=== PATIENT | female | born 1985 | race Caucasian/White ===

== ENCOUNTER → 2016-10-02 | Outpatient (CLI) | payer BC ==
[~2016-10-02] MED LIST: CLR10 PO; DOCU-94 PO; FLV400; FRRS300 PO; LYSI500C2; MTR600X PO; OXYC5TAB PO; PRENTAB26 PO
== END | disposition home or self-care (01) ==
LOC: C.PAPS 13:32
PROVIDERS: ATTEND Obstetrics & Gynecology
DX: Z01.419 Encounter for gynecological examination (general) (routine) without abnormal findings (principal)

== ENCOUNTER → 2017-06-25 | Outpatient (CLI) | payer BC ==
[~2017-06-25] MED LIST changes: -FLV400; +FLV400 PO
[2017-06-25 13:02] LABS: HEMATOCRIT 37.7 % (37-47); MEAN CELL VOLUME 84.9 fL (80-100); MEAN CORPUSCULAR HEMOGLOBIN 28.2 pg (25-34); MEAN CORPUSCULAR HGB CONC 33.2 g/dl (32-36); MEAN PLATELET VOLUME 10.6 fL (7.4-10.4); PLATELET COUNT 264 K/uL (130-400); RED BLOOD COUNT 4.44 M/uL (4.2-5.4); WHITE BLOOD COUNT 9.74 K/uL (4.8-10.8)
== END | disposition home or self-care (01) ==
LOC: C.LAB1850 10:05
PROVIDERS: ATTEND Obstetrics & Gynecology
DX: O03.9 Complete or unspecified spontaneous abortion without complication (principal)

== ENCOUNTER → 2017-06-29 | Day surgery (SDC) | payer BC ==
[2017-06-27 12:16] VITALS: BMI 23.0
[~2017-06-29] VITALS: Ht 165.1 cm; Wt 64.1 kg
[~2017-06-29] MED LIST changes: +ATROPINE SULFATE 0.1 MG/ML 5ML SYR IV PRN; +DEXAMETHASONE SOD INJ 4 MG/ML VIAL ONE; -DOCU-94 PO; +DOXYCYCLINE HYCLATE 100 MG CAP PO SCH; +DOXYCYCLINE HYCLATE 100 MG CAP PO STA; +EpHEDrine SULFATE INJ 50 MG/ML AMP IV PRN; +FENTANYL CITRATE INJ 50 MCG/1 ML 2 ML VIAL IV PRN; +FENTANYL CITRATE INJ 50 MCG/1 ML 2 ML VIAL ONE; -FRRS300 PO; +HYDROmorphone INJ 1 MG/ML SYR IV PRN; +IBUPROFEN 600 MG TAB PO PRN; +KETOROLAC TROMETHAMINE 30 MG/ML VIAL IV. PRN; +LABETALOL HCL IV 5 MG/ML 20ML IV PRN; +LACTATED RINGER'S 1000ML 1,000 ML IV SCH; +LIDOCAINE HCL 2% 2 ML VIAL (20MG/ML) ONE; +MEPERIDINE HCL 25 MG/ML CARP IV PRN; +METHYLERGONOVINE MALEATE 0.2 MG TAB PO SCH; +METHYLERGONOVINE MALEATE 0.2 MG/ML AMP ONE; +MIDAZOLAM HCL 1 MG/ML 2ML VIAL ONE; -MTR600X PO; +NURSING VERBAL MED ORDER ONE; +ONDANSETRON INJ 2 MG/ML 2 ML VIAL IV PRN; +ONDANSETRON INJ 2 MG/ML 2 ML VIAL IV STA; +ONDANSETRON INJ 2 MG/ML 2 ML VIAL ONE; -OXYC5TAB PO; +OXYCODONE/ACETAMINOPHEN 5-325 TAB PO PRN; +OXYTOCIN INJ 10 UNITS/ML VIAL ONE; +PROPOFOL IV EMULSION 10 MG/ML 20 ML VIAL IV ONE; +SODIUM CHLORIDE 0.9% 1000ML 1,000 ML IV SCH
[2017-06-29 05:57] VITALS: BP 112/64; PULSE 60; TEMP 37.3; O2SAT 99; Ht 165.1 cm; Wt 64.1 kg
--- NOTE | 2017-06-29 07:15 | History & Physical Bridge Note ---
H&P Re-Evaluation Bridge Note: I have examined the patient, reviewed the History & Physical and in the interval since the performance of the History & Physical I have noted the following changes of clinical significance: No changes noted Discussed genetic testing on molar tissue to help secure dx and they agree and aware of possible out of pocket costs.
--- NOTE | 2017-06-29 08:37 | Discharge Instructions ---
Discharge Instructions Date of Service Jun 29, 2017. Admission Reason for Admission: Molar Discharge Discharge Diagnosis / Problem: after surgery Discharge Goals Goal(s): Routine recovery after surgery Activity Recommendations Activity Limitations: as noted below . Instructions / Follow-Up Instructions / Follow-Up ACTIVITY RECOMMENDATIONS: * Avoid tampons, douching, hot tubs, pools, and intercourse until bleeding has stopped. * May shower as usual. * No strenuous activity for 24-48 hours. After 24-48 hours, you may do anything you feel like doing (driving and sports are okay). SPECIAL CARE INSTRUCTIONS: Special Diet: * Mild nausea may occur in the immediate post-operative period. * Take clear liquids such as tea, cola or bouillon until all nausea has subsided; you may then resume your normal diet. Special Care: * Light bleeding and vaginal spotting can last from a few days to 3-4 weeks. Call your doctor if bleeding becomes heavier than the heaviest part of your period. * Check your temperature twice a day for one week. If it goes above 100.4 degrees Fahrenheit (38.0 Celsius), notify your doctor. * Call your doctor's office for an appointment for 2-4 weeks after your surgery. FOLLOW-UP VISIT: Call your doctor's office for an appointment for 2-4 weeks after your surgery. You will be given 3 tablet of methergine to take home. Take first dose by mouth at about 2pm and then remaining every 6hrs until done. The antibiotic prescription has been sent to [facility] pharmacy and is to be taken twice a day until done (5days). The medicine is called flagyl and you take the medications orally. Current Hospital Diet Patient's current hospital diet: Discharge Diet Recommended Diet: Regular Diet Procedures Procedures Performed: Ultrasound Guided Dilation and Evacuation and Curettage Pending Studies Studies pending at discharge: yes List of pending studies: pathology, chromosome evaluation Medical Emergencies . Who to Call and When: Medical Emergencies: If at any time you feel your situation is an emergency, please call 911 immediately. . Non-Emergent Contact Non-Emergency issues call your: Patient Services Manager . . "Provider Documentation" section prepared by Estefani Lance. . VTE Core Measure Inpt VTE Proph given/why not?: SCD's
--- NOTE | 2017-06-29 08:43 | [facility] Operative Report ---
Operative Report Operative Date Jun 29, 2017. Pre-Operative Diagnosis Molar , congenital uterine anomaly Post-Operative Diagnosis Molar , congenital uterine anomaly Procedure(s) Performed Ultrasound Guided Dilation and Evacuation and Curettage Surgeon Dr.Shreya Natalio MD Entrepreneur Surgeon(s) Dr. Wen Fang DO Estimated Blood Loss 20ml Findings Ultrasound present and uterus was notably with 2 horns. End of the procedure no evidence of retained tissue by ultrasound noted. Fluids 1000 Specimens A. Molar prenancy (chromosomal testing sent) B. Other horn gestation sac Drains none Anesthesia Gen. Complication(s) None Disposition Recovery Room / PACU Indications 31-year-old 2 para 1001 who presented to the office with 6 weeks gestational age by her last menstrual period with heavy bleeding. She was Rh- and therefore had some laboratory testing including an hCG. She received rhogam. Her hCG was 79,000 and therefore concern was raised for possible molar . When an ultrasound that did show likely molar in a left uterine horn however there was also a gestational sac with debris and no fetus or heart tones on the right uterine horn. She was known to have a uterine septum. She had a previous and had had evaluation of such at that time. Given the complicated nature of her uterine anatomy and the findings concerning for molar , it was recommended she proceed with surgical treatment with dilatation and evacuation and curettage under ultrasound guidance. Description of Procedure Patient was taken to the operating room and identified. After adequate general anesthesia was obtained she was placed in the dorsolithotomy position and prepped and draped in the usual sterile fashion. Ultrasound was present and began transabdominal ultrasound of the uterus. The bladder was already somewhat emptied and therefore the bladder was not further drained to allow for better visualization by ultrasound. An Allis clamp was placed on the anterior lip of the cervix and the cervix was sequentially dilated using Hegar dilators to 25. An 8 mm suction curette was gently placed through cervical os into the uterine cavity on the side of the warned that contain the molar tissue. This tissue was evacuated in multiple passes and a sharp curettage was performed to ensure complete removal. At this point the collection canister was changed. It was more difficult to get to the gestational sac containing cavity however with ultrasound guidance the suction curette as well as the sharp curet was used to clear the contents of this cavity into a separate container. Tissue was obtained for chromosome analysis from the canister that contained the molar . The patient had been given dilute IV Pitocin before the procedure was begun and at the end of the procedure was given 0.2 mg of IM Methergine. Bleeding was scant. Findings at the end of the procedure by ultrasound included complete evacuation of tissue. At this point the procedure was terminated. The patient was returned to the supine position she is from anesthesia and transported to recovery room in stable condition. All sponge lap and needle counts were correct 2. I attest to the content of the Intraoperative Record and any orders documented therein. Any exceptions are noted below.
--- NOTE | 2017-06-29 09:17 | Anesthesiology Progress Note ---
Anesthesia Post Op Note Date & Time Jun 29, 2017 at 09:17 Vital Signs Pain Intensity: 0 Vital Signs Past 12 Hours Date Time Temp Pulse Resp B/P (MAP) Pulse Ox O2 Delivery O2 Flow Rate FiO2 06/29/17 09:10 37 71 16 111/67 100 Room Air 06/29/17 09:00 71 16 107/62 100 Oxymask 10 06/29/17 08:50 62 16 107/65 100 Oxymask 10 06/29/17 08:40 36.7 79 16 113/73 100 Oxymask 10 06/29/17 05:57 37.3 60 16 112/64 (80) 99 Room Air Notes Mental Status: alert / awake / arousable, participated in evaluation Pt Amnestic to Procedure: Yes Nausea / Vomiting: adequately controlled Pain: adequately controlled Airway Patency, RR, SpO2: stable & adequate BP & HR: stable & adequate Hydration State: stable & adequate Anesthetic Complications: no major complications apparent
[2017-06-29 09:30] VITALS: BP 103/68; PULSE 57; TEMP 36.4; O2SAT 100
[2017-06-29 10:00] VITALS: BP 110/66; PULSE 60; O2SAT 100
[2017-06-29 10:30] VITALS: BP 96/64; PULSE 55; TEMP 36.5; O2SAT 100
== END | disposition home or self-care (01) ==
LOC: C.ACU 05:30
PROVIDERS: ATTEND Obstetrics & Gynecology
DX: O02.0 Blighted ovum and nonhydatidiform mole (principal); E78.00 Pure hypercholesterolemia, unspecified; Z79.899 Other long term (current) drug therapy

== ENCOUNTER → 2017-07-06 | Outpatient (CLI) | payer BC ==
[~2017-07-06] MED LIST changes: -ATROPINE SULFATE 0.1 MG/ML 5ML SYR IV PRN; -DEXAMETHASONE SOD INJ 4 MG/ML VIAL ONE; -DOXYCYCLINE HYCLATE 100 MG CAP PO SCH; -DOXYCYCLINE HYCLATE 100 MG CAP PO STA; -EpHEDrine SULFATE INJ 50 MG/ML AMP IV PRN; -FENTANYL CITRATE INJ 50 MCG/1 ML 2 ML VIAL IV PRN; -FENTANYL CITRATE INJ 50 MCG/1 ML 2 ML VIAL ONE; -HYDROmorphone INJ 1 MG/ML SYR IV PRN; -IBUPROFEN 600 MG TAB PO PRN; -KETOROLAC TROMETHAMINE 30 MG/ML VIAL IV. PRN; -LABETALOL HCL IV 5 MG/ML 20ML IV PRN; -LACTATED RINGER'S 1000ML 1,000 ML IV SCH; -LIDOCAINE HCL 2% 2 ML VIAL (20MG/ML) ONE; -MEPERIDINE HCL 25 MG/ML CARP IV PRN; -METHYLERGONOVINE MALEATE 0.2 MG TAB PO SCH; -METHYLERGONOVINE MALEATE 0.2 MG/ML AMP ONE; -MIDAZOLAM HCL 1 MG/ML 2ML VIAL ONE; -NURSING VERBAL MED ORDER ONE; -ONDANSETRON INJ 2 MG/ML 2 ML VIAL IV PRN; -ONDANSETRON INJ 2 MG/ML 2 ML VIAL IV STA; -ONDANSETRON INJ 2 MG/ML 2 ML VIAL ONE; -OXYCODONE/ACETAMINOPHEN 5-325 TAB PO PRN; -OXYTOCIN INJ 10 UNITS/ML VIAL ONE; -PROPOFOL IV EMULSION 10 MG/ML 20 ML VIAL IV ONE; -SODIUM CHLORIDE 0.9% 1000ML 1,000 ML IV SCH
== END | disposition home or self-care (01) ==
LOC: C.LAB1850 08:49
PROVIDERS: ATTEND Obstetrics & Gynecology
DX: O02.0 Blighted ovum and nonhydatidiform mole (principal); Z3A.00 Weeks of gestation of pregnancy not specified

== ENCOUNTER → 2017-07-11 | Outpatient (CLI) | payer BC ==
[2017-07-11 12:31] LABS: URINE APPEARANCE CLEAR (CLEAR); URINE BILIRUBIN NEG (NEG); URINE COLOR YELLOW; URINE NITRITE NEG (NEG); URINE PH 6.5 (4.5-7.5); URINE SPECIFIC GRAVITY 1.015 (1.000-1.030); UROBILINOGEN NEG (NEG)
[2017-07-11 12:32] LABS: MANUAL MICROSCOPIC REQUIRED? NO; REVIEW REQ? NO
== END | disposition home or self-care (01) ==
LOC: C.LAB1850 10:02
PROVIDERS: ATTEND Obstetrics & Gynecology
DX: R30.0 Dysuria (principal)

== ENCOUNTER → 2017-07-13 | Outpatient (CLI) | payer BC | END | disposition home or self-care (01) | LOC: C.LAB1850 09:28 | PROVIDERS: ATTEND Obstetrics & Gynecology | DX: O02.0 Blighted ovum and nonhydatidiform mole (principal) ==

== ENCOUNTER → 2017-08-03 | Outpatient (CLI) | payer BC | END | disposition home or self-care (01) | LOC: C.LAB1850 12:27 | PROVIDERS: ATTEND Obstetrics & Gynecology | DX: O02.0 Blighted ovum and nonhydatidiform mole (principal) ==

== ENCOUNTER → 2017-11-20 | Outpatient (CLI) | payer OTHER | END | disposition home or self-care (01) | LOC: C.LAB1850 10:21 | PROVIDERS: ATTEND Obstetrics & Gynecology | DX: O20.9 Hemorrhage in early pregnancy, unspecified (principal) ==

== ENCOUNTER → 2017-11-21 | Outpatient (CLI) | payer OTHER | END | disposition home or self-care (01) | LOC: C.LABSPEC 11:17 | PROVIDERS: ATTEND Obstetrics & Gynecology | DX: Z34.81 Encounter for supervision of other normal pregnancy, first trimester (principal) ==

== ENCOUNTER → 2017-11-23 | Outpatient (CLI) | payer OTHER ==
[2017-11-23 10:06] LABS: BASO % 0.3 %; BASO ABS # 0.02 K/uL (0-0.2); EOS % 3.4 %; EOS ABS # 0.24 K/uL (0-0.5); HEMATOCRIT 36.3 % (37-47); HEMOGLOBIN 12.7 g/dL (12.0-16.0); IG# 0.03 K/uL (0.00-0.02); LYMPH % 28.9 %; LYMPH ABS # 2.06 K/uL (1.2-3.4); MEAN CELL VOLUME 84.2 fL (80-100); MEAN CORPUSCULAR HEMOGLOBIN 29.5 pg (25-34); MEAN PLATELET VOLUME 10.1 fL (7.4-10.4); MONO ABS # 0.64 K/uL (0.11-0.59); NEUT ABS # 4.14 K/uL (1.4-6.5); PLATELET COUNT 234 K/uL (130-400); RED CELL DISTRIBUTION WIDTH CV 13.3 % (11.5-14.5); RED CELL DISTRIBUTION WIDTH SD 40.5 fL (36.4-46.3); WHITE BLOOD COUNT 7.13 K/uL (4.8-10.8)
[2017-11-23 10:51] LABS: ALBUMIN 3.8 gm/dl (3.4-5.0); ALT/SGPT 19 U/L (12-78); BLOOD UREA NITROGEN 8 mg/dl (7-18); CALCIUM 9.3 mg/dl (8.5-10.1); CARBON DIOXIDE 25 mmol/L (21-32); CREATININE 0.56 mg/dl (0.60-1.20); GLUCOSE 59 mg/dl (70-99); POTASSIUM 3.5 mmol/L (3.5-5.1); SODIUM 136 mmol/L (136-145)
[2017-11-23 10:54] LABS: ALKALINE PHOSPHATASE 46 U/L (45-117); AST/SGOT 16 U/L (15-37); TOTAL PROTEIN 7.5 gm/dl (6.4-8.2)
== END | disposition home or self-care (01) ==
LOC: C.LAB1850 09:12
PROVIDERS: ATTEND Obstetrics & Gynecology
DX: Z34.81 Encounter for supervision of other normal pregnancy, first trimester (principal)

== ENCOUNTER → 2017-11-27 | Outpatient (CLI) | payer OTHER | END | disposition home or self-care (01) | LOC: C.LABSPEC 10:31 | PROVIDERS: ATTEND Obstetrics & Gynecology | DX: R30.0 Dysuria (principal) ==

== ENCOUNTER → 2018-01-11 | Outpatient (CLI) | payer OTHER ==
[~2018-01-11] MED LIST changes: +ASPI81TA28 PO; -LYSI500C2; +LYSI500C2 PO
== END | disposition home or self-care (01) ==
LOC: C.LAB1850 14:26
PROVIDERS: ATTEND Obstetrics & Gynecology
DX: Z29.13 Encounter for prophylactic Rho(D) immune globulin (principal)

== ENCOUNTER 2018-01-18 08:14 | Day surgery (SDC) | payer OTHER ==
[~2018-01-18] VITALS: Ht 165.1 cm; Wt 65.5 kg
[~2018-01-18 08:14] MED LIST changes: +DOXYCYCLINE HYCLATE 100 MG CAP PO SCH; +DOXYCYCLINE HYCLATE 100 MG in DEXTROSE 5% 100ML IV SCH; +LACTATED RINGER'S 1000ML 1,000 ML IV SCH; -PRENTAB26 PO
[2018-01-18 08:47] VITALS: BP 104/61; PULSE 68; TEMP 37; O2SAT 100; Ht 165.1 cm; Wt 65.5 kg
[2018-01-18] MEDS ORDERED: NURSING VERBAL MED ORDER ONE ×2 (09:30→14:30)
[2018-01-18] MEDS ORDERED: SODIUM CHLORIDE 0.9% 1000ML 1,000 ML IV SCH (09:39)
--- NOTE | 2018-01-18 09:39 | History & Physical Bridge Note ---
H&P Re-Evaluation Bridge Note: I have examined the patient, reviewed the History & Physical and in the interval since the performance of the History & Physical I have noted the following changes of clinical significance: No changes noted
--- NOTE | 2018-01-18 09:42 | Discharge Instructions ---
Discharge Instructions Date of Service Jan 18, 2018. Visit Reason for Visit: Demise Discharge Discharge Diagnosis / Problem: Missed Discharge Goals Goal(s): Specific goals Activity Recommendations Activity Limitations: per Instructions/Follow-up section Anesthesia . Post Anesthesia Instructions: If you have had General Anesthesia or IV Sedation: * Do not drive today. * Resume driving when surgeon permits. * Do not make important decisions or sign legal documents today. * Call surgeon for: 1. Temperature elevations greater than 101 degrees F. 2. Uncontrollable pain. 3. Excessive bleeding. 4. Persistent nausea and vomiting. 5. Medication intolerance (nausea, vomiting or rash). * For nausea and vomiting use only clear liquids such as: tea, soda, bouillon until nausea subsides, then gradually increase diet as tolerated. * If you have any concerns or questions, call your surgeon's office. If physician is unavailable and it is an emergency, call 911 or go to the nearest emergency room. . Instructions / Follow-Up Instructions / Follow-Up ACTIVITY RECOMMENDATIONS: * Avoid tampons, douching, hot tubs, pools, and intercourse until bleeding has stopped. * May shower as usual. * No strenuous activity for 24-48 hours. After 24-48 hours, you may do anything you feel like doing (driving and sports are okay). SPECIAL CARE INSTRUCTIONS: Special Diet: * Mild nausea may occur in the immediate post-operative period. * Take clear liquids such as tea, cola or bouillon until all nausea has subsided; you may then resume your normal diet. Special Care: * Light bleeding and vaginal spotting can last from a few days to 3-4 weeks. Call your doctor if bleeding becomes heavier than the heaviest part of your period. * Check your temperature twice a day for one week. If it goes above 100.4 degrees Fahrenheit (38.0 Celsius), notify your doctor. * Call your doctor's office for an appointment for 6 weeks after your surgery. FOLLOW-UP VISIT: Call your doctor's office for an appointment for 6 weeks after your surgery. Diet Recommendations Recommended Home Diet: resume previous diet Pending Studies Studies pending at discharge: no Medical Emergencies . Who to Call and When: Medical Emergencies: If at any time you feel your situation is an emergency, please call 911 immediately. . Non-Emergent Contact Non-Emergency issues call your: Primary Care Provider . . "Provider Documentation" section prepared by Tasneem Will. .
[2018-01-18] MEDS ORDERED: ONDANSETRON INJ 2 MG/ML 2 ML VIAL IV PRN ×2 (09:45→11:00)
[2018-01-18] MEDS ORDERED: OXYCODONE/ACETAMINOPHEN 5-325 TAB PO PRN ×2 (09:45)
[2018-01-18] MEDS ORDERED: PROMETHAZINE HCL INJ 25 MG in SODIUM CHLORIDE 0.9% 50ML 50 ML IV PRN (09:45)
[2018-01-18] MEDS ORDERED: IBUPROFEN 600 MG TAB PO PRN (09:45)
[2018-01-18] MEDS ORDERED: METHYLERGONOVINE MALEATE 0.2 MG/ML AMP ONE (10:19)
[2018-01-18] MEDS ORDERED: HYDROmorphone INJ 0.5 MG/0.5 ML SYR IV PRN (11:00)
[2018-01-18] MEDS ORDERED: FENTANYL CITRATE INJ 50 MCG/1 ML 2 ML VIAL IV PRN (11:00)
[2018-01-18] MEDS ORDERED: ATROPINE SULFATE 0.1 MG/ML 5ML SYR IV PRN (11:00)
[2018-01-18] MEDS ORDERED: DOXYCYCLINE IV ONE (11:00)
[2018-01-18] MEDS ORDERED: DEXTROSE 5% IV ONE (11:00)
[2018-01-18] MEDS ORDERED: LABETALOL HCL IV 5 MG/ML 20ML IV PRN (11:00)
[2018-01-18] MEDS ORDERED: MEPERIDINE HCL 25 MG/ML CARP IV PRN (11:00)
[2018-01-18] MEDS ORDERED: EpHEDrine SULFATE INJ 50 MG/ML AMP IV PRN (11:00)
[2018-01-18] MEDS ORDERED: SCOPOLAMINE 1.5 MG TDSY TD ONE (11:48)
[2018-01-18] MEDS ORDERED: PROPOFOL IV EMULSION 10 MG/ML 20 ML VIAL IV ONE (11:51)
[2018-01-18] MEDS ORDERED: DEXAMETHASONE SOD INJ 4 MG/ML VIAL ONE (11:51)
[2018-01-18] MEDS ORDERED: MIDAZOLAM HCL 1 MG/ML 2ML VIAL ONE (11:51)
[2018-01-18] MEDS ORDERED: LIDOCAINE HCL 2% 2 ML VIAL (20MG/ML) ONE (11:51)
[2018-01-18] MEDS ORDERED: ONDANSETRON INJ 2 MG/ML 2 ML VIAL ONE (11:51)
[2018-01-18] MEDS ORDERED: FENTANYL CITRATE INJ 50 MCG/1 ML 2 ML VIAL ONE (11:51)
[2018-01-18] MEDS ORDERED: CHECK SCOPOLAMINE PATCH PLACEMENT ONE (12:00)
--- NOTE | 2018-01-18 12:52 | [facility] Post Operative Brief Note ---
Immediate Operative Summary Operative Date Jan 18, 2018. Pre-Operative Diagnosis Second trimester demise in utero Post-Operative Diagnosis Same Procedure(s) Performed D&E Surgeon Dr. Eva Will Ballistics Tester Surgeon(s) MS1 Estimated Blood Loss 250cc Findings Consistent with Post-Op Diagnosis Specimens POC provided to patient to take home as requested. (Labeled with patient name and accompanied patient to PACU.) Drains None Anesthesia Type General Complication(s) none Disposition Accompanied Pt To Recover: no Disposition: Recovery Room / PACU
--- NOTE | 2018-01-18 13:24 | DIAGNOSTIC IMAGING REPORT ---
Pelvic ultrasound GUIDANCE INTRAOPERATIVE CLINICAL HISTORY: greater than 12 weeks. Failed . FINDINGS: Real-time sonographic imaging of the pelvis performed in the transabdominal technique for intraoperative guidance of a dilatation and evacuation. Initial images demonstrate partial visualization of the fetus within the uterine cavity. Subsequent images demonstrate evacuation of the fetus. There is persistent small focal collection within the uterine fundus. IMPRESSION: Pelvic ultrasound provided for intraoperative guidance of a dilatation and evacuation. Post procedure images demonstrate a small amount of hypoechoic material within the uterine fundus. This may represent expected post procedure hemorrhage. Consider follow up to ensure resolution. Electronically signed by: Rodriguez Chatman M.D. 01/18/2018 1:23 PM Dictated Date/Time: 01/18/2018 1:20 PM
[2018-01-18 13:47] VITALS: BP 105/71; PULSE 58; TEMP 36.8; O2SAT 100
--- NOTE | 2018-01-18 14:24 | Anesthesiology Progress Note ---
Anesthesia Post Op Note Date & Time Jan 18, 2018 at 14:24 Vital Signs Pain Intensity: 4.0 Vital Signs Past 12 Hours Date Time Temp Pulse Resp B/P (MAP) Pulse Ox O2 Delivery O2 Flow Rate FiO2 01/18/18 13:39 36.6 100 Room Air 01/18/18 13:37 62 22 01/18/18 13:37 63 22 99 01/18/18 13:36 122/88 01/18/18 13:33 58 19 100 01/18/18 13:33 55 19 01/18/18 13:31 111/76 01/18/18 13:28 53 18 01/18/18 13:28 57 18 99 01/18/18 13:27 52 12 01/18/18 13:27 51 12 99 01/18/18 13:26 118/83 01/18/18 13:22 57 17 01/18/18 13:22 54 17 99 01/18/18 13:21 115/81 01/18/18 13:18 62 17 99 01/18/18 13:18 65 17 01/18/18 13:16 115/84 01/18/18 13:13 57 13 01/18/18 13:13 55 13 100 01/18/18 13:12 60 18 124/68 99 01/18/18 13:12 60 18 01/18/18 13:07 71 20 01/18/18 13:07 72 20 97 01/18/18 13:06 105/77 01/18/18 13:03 111/76 01/18/18 13:02 93 26 100 01/18/18 13:02 93 26 01/18/18 13:02 36.2 84 20 111/76 100 Oxymask 10 01/18/18 08:47 37 68 18 104/61 (75) 100 Room Air Notes Mental Status: alert / awake / arousable, participated in evaluation Pt Amnestic to Procedure: Yes Nausea / Vomiting: adequately controlled Pain: adequately controlled Airway Patency, RR, SpO2: stable & adequate BP & HR: stable & adequate Hydration State: stable & adequate Anesthetic Complications: no major complications apparent
[2018-01-18 14:25] VITALS: BP 104/68; PULSE 60; TEMP 36.3; O2SAT 99
[2018-01-18] MEDS ORDERED: DOXYCYCLINE HYCLATE 100 MG CAP PO ONE (14:30)
--- NOTE | 2018-01-18 15:44 | OPERATIVE REPORT ---
DATE OF OPERATION: 01/18/2018 PREOPERATIVE DIAGNOSIS: Second trimester demise in utero. POSTOPERATIVE DIAGNOSIS: Same. PROCEDURE: D and E. SURGEON: Tasneem Will MD INSURANCE CUSTOMER SERVICE SPECIALIST: MS-1. ESTIMATED BLOOD LOSS: 250 mL. FINDINGS: Consistent with postop diagnosis. SPECIMEN: POCs which were provided to the patient to take home at her request. See signed consent. POCs were labeled with the patient name and they accompanied the patient to the PACU. DRAINS: None. ANESTHESIA: General. COMPLICATIONS: None. DISPOSITION: Stable to recovery room. DESCRIPTION OF PROCEDURE: Kateryna Van is a 32-year-old G3, P1-0-2-1 who presented with a tavarez intrauterine , 16 weeks by gestational age but with a demise measuring approximately 13 weeks. She was placed on the table in the dorsal lithotomy position with candy-cane stirrups, prepped and draped in standard sterile fashion and a hard time-out was taken prior to proceeding. The bladder was emptied of urine via straight catheterization. Lloyd and weighted specula were introduced to the vagina, staying to the left of the patient's vaginal septum, and the cervix was grasped on its anterior lip with a single-tooth tenaculum. Ultrasound guidance was in the OR prior to the case and throughout the case. They were able to use ultrasound guidance to visualize the contents of the uterus and confirm demise one final time before the cervix was serially dilated to a 49-Yemeni. The 14 mm suction catheter was then introduced and used to evacuate a brownish old-appearing amniotic fluid, although the majority of the parts were able to be evacuated using suction. The calvarium was too large for this approach. Therefore, the Bierer's forceps were introduced through the cervical canal into the endometrial cavity where they were used to surround and decompress the calvarium, which was then gently extracted in 1 piece. The suction curet was then reintroduced. The contents of the uterus were then evacuated using suction. As the uterus contracted down, the septate nature of the uterus became more evident and there was more definitely a right and left cavity. Each cavity was entered using ultrasound guidance and suction curettage was carried out on both sides. Ultimately, a sharp curette was then introduced in order to release one last approximately 3 inch long piece of placenta which was being a bit stubborn. The suction curette 8 mm was then introduced to make a few final passes to retrieve any blood clot and debris. Ultrasound guidance was able to show as that the lining was thin and that all placental and tissues had been removed. At that point, the patient's bleeding was slightly brisk, so she was given a dose of Methergine, while bimanual massage was performed, the bleeding quickly abated and the procedure was then considered completed. The patient was transferred to recovery and I anticipate discharge home today. Of note, the patient is Rh negative. She was given RhoGAM in our office 1 week prior at the time of her diagnosis of MAB. Additionally, the patient and her after much consideration have elected to bring their products of conception home in order to allow for grieving and burial at their preference. She has signed a consent expressing that she will accept responsibility for her tissues. The products of conception were then placed in a container with saline and this was placed in a bereavement box provided to her by the hospital which accompanied her to the PACU and we anticipate she will be taken at home with her today. She understands that this means there will be no studies done on the tissue meaning no gross pathology, no heterogenetic information will be obtained. I attest to the content of the Intraoperative Record and any orders documented therein. Any exceptions are noted below. [place]
== END 2018-01-18 14:24 | disposition home or self-care (01) ==
LOC: C.ACU 08:14
PROVIDERS: ATTEND Obstetrics & Gynecology
DX: O02.1 Missed abortion (principal); Q76.0 Spina bifida occulta; Z79.82 Long term (current) use of aspirin; Z91.030 Bee allergy status; Z82.49 Family history of ischemic heart disease and other diseases of the circulatory system; Z83.49 Family history of other endocrine, nutritional and metabolic diseases; E78.00 Pure hypercholesterolemia, unspecified; Z83.2 Family history of diseases of the blood and blood-forming organs and certain disorders involving the immune mechanism; Z80.0 Family history of malignant neoplasm of digestive organs

== ENCOUNTER 2019-07-02 05:29 | Inpatient (IN) ==
--- NOTE | 2019-06-27 11:11 | History and Physical Report ---
DATE OF ADMISSION: 05/06/2019 CHIEF COMPLAINT: Previous , term , unstable lie. HISTORY OF PRESENT ILLNESS: The patient is a 33-year-old 5, para 1. She has had 3 spontaneous ABs. She has history of spina bifida occulta. She has had several back surgeries, several surgeries on her legs, she has atrophy of the right leg. First she had a at 38 weeks 1 day after her blood pressure went up and she became toxemic. She had a 7 pound 5 ounce male and was a breech presentation. This has been well dated. She has been on baby aspirin daily until she was 36 weeks and then we stopped recently. was ultrasounded for growth and she was found to have mildly increased amniotic fluid. It was repeated a week later and was found to have a breech presentation. Also she came into the office several times and clinically the breech was confirmed. It should be noted she has a heart-shaped uterus. At this time a pelvic exam revealed the cervix to be unripe. Presenting part to be floating and she is being scheduled for repeat section. PAST MEDICAL HISTORY: She has a 4-year-old boy. ALLERGIES: ALLERGIC TO LATEX. PAST SURGICAL HISTORY: Previously mentioned spine surgery for spina bifida occulta, leg and foot surgery multiple operations atrophy of the right leg. She has had a D&E x2 and she had a resection of a uterine septum. SOCIAL HISTORY: No smoking. No excessive alcohol intake. [id number] mom. FAMILY HISTORY: Mom is 55, has problems with anxiety and depression, high blood pressure, elevated cholesterol. Father 66, has early onset Alzheimer's, ulcerative colitis, elevated blood pressure. He is a recovering alcoholic, smoker, 3 half brothers and sisters all in good health. REVIEW OF SYSTEMS: HEAD: No symptoms of frequent or severe headaches. EYES: No symptoms of blurred vision, double vision. EARS: No symptoms of frequent ear infection, difficulty hearing. NOSE: No symptoms of frequent nosebleeds, difficulty breathing through her nose. THROAT: No symptoms of frequent or severe sore throats, difficulty swallowing. RESPIRATORY SYSTEM: No history of asthma, chest pain, shortness of breath. PHYSICAL EXAMINATION: GENERAL: Well-developed, well-nourished 34-year-old white female, alert and oriented x3 and cooperative in no acute distress, appears stated age. EYES: Conjunctivae are pink. Sclerae white, no evidence of jaundice. EARS: Had normal light reflex bilaterally. NOSE: Had normal mucosa. Septum is midline. There were no polyps. THROAT: No erythema or evidence of infection. Teeth are in good state of repair. HEAD: Normocephalic, normal distribution of hair. NECK: Supple. Trachea midline. Thyroid is not enlarged. There is no adenopathy appreciated. Both carotids are of good intensity. CHEST: Clear to auscultation and percussion. No wheezes, rales or rhonchi appreciated. HEART: Had regular rhythm. S1, S2 are normal. BREASTS: Normal. ABDOMEN: Revealed term size fetus, heart wedge-shaped uterus could be diagnosed through the abdominal wall, well-healed Pfannenstiel incision. Head ballotable left upper quadrant. BACK: Midline incision for previous spine surgery several scars on her right leg and foot. PELVIC: Presenting part floating. Cervix posterior, closed, uneffaced and firm. MUSCULOSKELETAL: Revealed no calf tenderness. IMPRESSIONS OF THIS CASE: Spina bifida occulta, D&E x2, resection of a uterine septum. Previous , previous foot and leg surgery, breech presentation, unstable lie.
--- NOTE | 2019-06-30 14:17 | Anesthesiology Consultation ---
Date of Service June 30, 2019 Assessment & Plan (1) Encounter for pre-operative examination: - Hx spina bifida occulta: patient s/p c/s: 08/16/15: SAB x 1 at L3-L4 at [facility]; per patient, perioperative hypotension with c/s-- no major complications apparent per anesthesia records Chart Review Chart Review: Acceptable Risk for Surgery (pending preop labs) and Patient seen in Pre Admission Testing Teaching & Discussion Pre-Anesthesia Teaching/Discussion Notes: Instructed NPO after midnight before surgery,except medications with 15 cc of water. Medication instructions provided according to the PAT guidelines. History Surgery Operation Date: 07/02/19 07:30 Proposed Procedures p Section in LD - Nilay Cortez MD Height/Weight Height: 5 ft 4 in Weight: 81.647 kg Allergies Allergy/AdvReac Type Severity Reaction Status Date / Time latex Allergy Unknown REDNESS, Verified 06/27/19 11:57 SWELLING THROAT SOB Medications Home Medications Medication Instructions Recorded Confirmed Last Taken 1 tab PO QPM 06/27/19 06/27/19 Unknown docusate sodium [Stool Softener] 100 mg PO QPM 06/27/19 06/27/19 Unknown lysine 1 dose PO QPM 06/27/19 06/27/19 Unknown Past Medical History Medical History Anxiety Chronic back pain Depression Spina bifida occulta diagnosed at - able to ambulate without assistance Exercise / Class Metabolic Activity III < 4 Walking/Shop/Light housework Past Surgical History Surgical History H/O: History of D&C x 2 History of back surgery multiple - hardware present History of surgery right leg lengthening History of wisdom tooth extraction Hx of foot surgery right club foot Status post hysteroscopic resection of uterine septum Past Anesthesia History Other c/s: 08/16/15: SAB x 1 at L3-L4 at [facility]; per patient, perioperative hypotension with c/s-- no major complications apparent per anesthesia records History of PONV History of PONV Social History Smoking Status: Never smoker Do You Dip or Chew Tobacco: No Hx Alcohol Use: No Hx Substance Use: No substance use type: does not use Review of Systems URI symptoms- OB aware. Mild reflux with . Patient denies chest pain, shortness of breath, wheezing, palpitations. Physical Exam Vital Signs Last Vital Signs Temp 36.7 C 06/30/19 14:13 Pulse 74 06/30/19 14:13 Resp 20 06/30/19 14:13 BP 115/78 06/30/19 14:13 Pulse Ox 98 06/30/19 14:13 PHYSICAL Full neck and c-spine range of motion. Full TMJ range of motion. TMD 3.5 finger breaths Mallampati Score 2 Dentition: intact Lungs: clear throughout to auscultation Cardiac: regular rate and rhythm, no murmurs noted Spine: normal Extremities: no edema
[2019-06-30 15:06] LABS: Basophils # (auto) 0.03 K/uL (0-0.2); Basophils % (auto) 0.3 %; Eosinophils # (auto) 0.27 K/uL (0-0.5); Eosinophils % (auto) 2.5 %; Hematocrit (blood only) 37.2 % (37-47); Hemoglobin 12.5 g/dL (12.0-16.0); Immature Granulocytes % (auto) 0.9 %; Lymphocytes # (auto) 2.38 K/uL (1.2-3.4); Lymphocytes % (auto) 21.9 %; Mean Corpuscular Hgb Conc 33.6 g/dL (32-36); Mean Corpuscular Volume 86.3 fL (80-100); Mean Platelet Volume 12.8 fL (7.4-10.4); Monocytes # (auto) 0.78 K/uL (0.11-0.59); Monocytes % (auto) 7.2 %; Neutrophils # (auto) 7.29 K/uL (1.4-6.5); Neutrophils % (auto) 67.2 %; Platelet Count 149 K/uL (130-400); RDW Coefficient of Variation 13.9 % (11.5-14.5); Red Blood Count 4.31 M/uL (4.2-5.4); White Blood Count 10.85 K/uL (4.8-10.8)
[2019-06-30 15:10] LABS: INR 0.9 (0.9-1.1); Partial Thromboplastin Time 26.8 Seconds (21.0-31.0); Prothrombin Time 9.3 Seconds (9.0-12.0)
[2019-06-30 15:20] LABS: BUN Creatinine Ratio 13.7 (10-20); Calcium 8.8 mg/dl (8.5-10.1); Creatinine Clr Calc Pharmacy 132.2 ml/min; Est GFR (African American) 136.8; Est GFR (Non-African American) 118.1; Potassium 3.6 mmol/L (3.5-5.1)
[2019-07-02] MEDS ORDERED: cefOXitin 2,000 MG in DEXTROSE 5% 50 ML IV SCH (06:00)
[2019-07-02] MEDS ORDERED: LACTATED RINGER'S 1,000 ML IV SCH ×2 (06:00→09:30)
[2019-07-02] MEDS ORDERED: CITRIC ACID/SODIUM CITRATE 15 ML UDC PO SCH (06:00)
[2019-07-02 06:06] LABS: Basophils # (auto) 0.03 K/uL (0-0.2); Basophils % (auto) 0.3 %; Eosinophils # (auto) 0.23 K/uL (0-0.5); Eosinophils % (auto) 2.3 %; Hematocrit (blood only) 36.4 % (37-47); Hemoglobin 12.3 g/dL (12.0-16.0); Immature Granulocytes # (auto) 0.12 K/uL (0.00-0.02); Immature Granulocytes % (auto) 1.2 %; Lymphocytes # (auto) 2.77 K/uL (1.2-3.4); Lymphocytes % (auto) 27.3 %; Mean Corpuscular Hemoglobin 28.9 pg (25-34); Mean Corpuscular Volume 85.4 fL (80-100); Mean Platelet Volume 12.4 fL (7.4-10.4); Monocytes # (auto) 0.89 K/uL (0.11-0.59); Monocytes % (auto) 8.8 %; Neutrophils % (auto) 60.1 %; Platelet Count 152 K/uL (130-400); RDW Standard Deviation 43.1 fL (36.4-46.3); Red Blood Count 4.26 M/uL (4.2-5.4); White Blood Count 10.14 K/uL (4.8-10.8)
[2019-07-02 06:08] LABS: Mean Corpuscular Hgb Conc 33.8 g/dL (32-36)
[2019-07-02 06:13] LABS: BUN Creatinine Ratio 13.3 (10-20); Calcium 9.1 mg/dl (8.5-10.1); Creatinine Clr Calc Pharmacy 130.4 ml/min; Est GFR (African American) 136.8; Est GFR (Non-African American) 118.1; Potassium 3.6 mmol/L (3.5-5.1)
[2019-07-02 06:16] LABS: INR 0.9 (0.9-1.1); Partial Thromboplastin Time 26.1 Seconds (21.0-31.0); Prothrombin Time 9.3 Seconds (9.0-12.0)
--- NOTE | 2019-07-02 07:25 | History & Physical Bridge Note ---
Date of Service July 02, 2019 History & Physical Bridge Note I have examined the patient, reviewed the History & Physical and in the interval since the performance of the History & Physical I have noted the following changes of clinical significance: no changes noted
[2019-07-02] MEDS ORDERED: OXYTOCIN 10 UNITS/ML VIAL ONE ×2 (07:35→08:44)
[2019-07-02] MEDS ORDERED: fentaNYL citrate 100 MCG/2 ML VIAL ONE (07:37)
[2019-07-02] MEDS ORDERED: MoRPHine SULFATE PF 1 MG/ML 10 ML AMP/VIAL ONE (07:38)
--- NOTE | 2019-07-02 09:11 | Post Operative Brief Note ---
Immediate Post Op Note v1 Date of Surgery July 02, 2019 Pre & Post Diagnosis Operation Date: 07/02/19 07:30 Pre-Op Diagnosis: BREECH, PREVIOUS SECTION, TERM Post-Op Diagnosis: BREECH, PREVIOUS SECTION, TERM Procedure Operation Date: 07/02/19 07:30 Actual Procedures p Section in LD; LIVE MALE AT 0830 - Nilay Cortez MD Surgeon Nilay Cortez MD Software Development Project Manager azul Estimated Blood Loss 600 Findings Consistent with Post-Op Diagnosis Fluids 1200 ml Specimens placenta Drains Peterson Catheter Anesthesia Type Spinal Complications none Disposition Accompanied Patient To Recovery: No Disposition: Recovery Room
[2019-07-02] MEDS ORDERED: HYDROCORTISONE ACETATE 25 MG SUPP PR PRN (09:16)
[2019-07-02] MEDS ORDERED: MAGNESIUM HYDROXIDE SUSP 30 ML UDC PO PRN (09:16)
[2019-07-02] MEDS ORDERED: BENZOCAINE 20% AER SPR 82.5 GM CAN EXT PRN (09:16)
[2019-07-02] MEDS ORDERED: DIPHTHERIA/TETANUS/PERTUSSIS 0.5 ML SYR/VIAL IM ONE (09:16)
[2019-07-02] MEDS ORDERED: SENNA 8.6 MG TAB PO PRN (09:16)
[2019-07-02] MEDS ORDERED: SUPERCREAM 0.870% 15 GM JAR EXT PRN (09:16)
[2019-07-02] MEDS ORDERED: ONDANSETRON INJ 2 MG/ML 2 ML VIAL IV PRN (09:17)
[2019-07-02] MEDS ORDERED: DiphenhydrAMINE HCL 50 MG/ML VIAL IV PRN (09:17)
[2019-07-02] MEDS ORDERED: NALBUPHINE HCL INJ 10 MG/ML AMP IV PRN (09:17)
[2019-07-02] MEDS ORDERED: LACTATED RINGER'S 500 ML IV PRN (09:17)
[2019-07-02] MEDS ORDERED: MoRPHine SULFATE PF 1 MG/ML 10 ML AMP/VIAL INT SPINAL ONE (09:17)
[2019-07-02] MEDS ORDERED: ePHEDrine sulfate 50 MG/ML AMP IV PRN (09:17)
[2019-07-02] MEDS ORDERED: NALOXONE HCL 0.08 MG in SYRINGE 1.8 ML IV PRN (09:17)
[2019-07-02] MEDS ORDERED: NALOXONE HCL 0.4 MG/1 ML VIAL/CARP IV PRN (09:17)
[2019-07-02] MEDS ORDERED: NALOXONE HCL 1 MG in SODIUM CHLORIDE 0.9% 1000ML 1,000 ML IV PRN (09:17)
[2019-07-02] MEDS ORDERED: PROMETHAZINE HCL 25 MG in SODIUM CHLORIDE 0.9% 50 ML IV PRN (09:17)
[2019-07-02] MEDS ORDERED: SODIUM CHLORIDE 0.9% 1000ML 1,000 ML IV SCH (09:30)
[2019-07-02] MEDS ORDERED: DC INTRASPINAL MORPHINE SCH (09:30)
[2019-07-02] MEDS ORDERED: NO NARCOTICS OR SEDATIVES SCH (09:30)
[2019-07-02] MEDS: OXYTOCIN 20 UNITS in LACTATED RINGER'S 1,000 ML IV SCH ×2 (09:56→18:38)
--- NOTE | 2019-07-02 09:58 | Operative Report ---
DATE OF OPERATION: 07/02/2019 PROCEDURE: Repeat low segment section. INDICATIONS FOR SURGERY: Breech presentation, 39 weeks gestation, position confirmed by bedside ultrasound. POSTOPERATIVE DIAGNOSIS: Breech presentation, delivered a live male infant. SURGEON: Dr. Cortez. WO[employer]ING [employer] LABORER: Hitesh Epstein MD ESTIMATED BLOOD LOSS: 600 mL. ANESTHESIA: Spinal. OPERATIVE FINDINGS AND PROCEDURE: The patient was brought to the OR table, correctly identified by armband and conversation. Spinal anesthesia was administered, then compression stockings were applied. A Peterson catheter was inserted aseptically in the bladder, connected to gravity drainage. Lower abdomen was painted with an alcohol-based sterilizing solution. The patient was then draped in usual sterile fashion. Adequacy of the spinal was checked and found to be good. A Pfannenstiel incision was made through a previous scar, was carried down to the anterior fascia by sharp dissection. Hemostasis was secured by electrocauterization. Fascia was incised transversely from the underlying muscle by blunt and sharp dissection. Recti muscles were in the midline exposing the peritoneum which was carefully raised and entered. Lower uterine segment was exposed. A breech presentation was confirmed and it was really somewhat in a transverse position with the head in the right upper quadrant. After palpating the position of the baby, I made an incision above the vesicouterine fold, undermined the bladder and then made a relatively high entry on the uterus. Fluid was clear. I was able to get ahold of both of the ankles which were in the patient's left lower quadrant and then essentially do a breech extraction, bring out the buttocks, thorax, reduced each arm and then delivered the head. Infant breathing and cried spontaneously, was attended by the information systems analyst who was scrubbed and present at the time of delivery. Cord blood was taken. There was a true knot noted in the cord at the time of delivery. After cord blood had been taken, the placenta was removed manually. Uterine cavity was cleansed with a clean sponge. Ten units of Pitocin was injected into the myometrium. Myometrium was then approximated in 2 layers. The muscular layer was approximated with continuous chromic gut suture and then the fascial layer was approximated over this with a continuous interlocking suture of heavy Vicryl. Following that, about 3 interrupted [id number] sutures used to complete the approximation and create good hemostasis. Hemostasis was excellent. I then approximated the peritoneum with a continuous 3-0 chromic. There was a small peritoneal window in the bladder which I dissected down and closed with a running 3-0 chromic. Following this, hemostasis was good. The pelvis was cleansed of all blood clots and debris. Uterus, tubes, and ovaries were reinserted in the incision. Careful anatomical approximation of the anterior abdominal wall was performed. The peritoneum was closed with a mattress suture of chromic catgut. Recti muscles were approximated with interrupted [id number] suture of chromic catgut. The fascia was closed with continuous interlocking suture of Vicryl on each side, tied in the midline. SubQ was approximated with a running plain and skin edges approximated with staple clips. I attest to the content of the Intraoperative Record and any orders documented therein. Any exception s are noted below.
--- NOTE | 2019-07-02 10:29 | Anesthesiology Progress Note ---
Date of Service July 02, 2019 Anesthesia Post Procedure Vital Signs Vital Signs: Temp Pulse Resp BP Pulse Ox 07/02/19 10:27 66 96 07/02/19 10:23 68 94 07/02/19 10:22 67 97 07/02/19 10:17 62 117/78 96 07/02/19 10:12 65 97 07/02/19 10:08 78 110/84 07/02/19 10:07 65 93 07/02/19 10:02 52 L 97 07/02/19 09:57 64 112/75 96 07/02/19 09:52 59 L 95 07/02/19 09:48 76 120/80 07/02/19 09:47 77 96 07/02/19 09:43 77 93 07/02/19 09:42 73 95 07/02/19 09:37 54 L 108/67 99 07/02/19 09:35 47 L 102/69 07/02/19 09:32 52 L 99 07/02/19 09:27 45 L 100 07/02/19 09:22 51 L 97 07/02/19 09:17 69 115/62 98 07/02/19 05:47 36.7 C 66 18 119/75 07/02/19 05:44 66 119/75 Transfer of Care Handoff Completed per policy Notes Mental Status: alert / awake / arousable Patient Amnestic to Procedure: Yes Nausea / Vomiting: adequately controlled Pain: adequately controlled Airway Patency, RR, SpO2: stable & adequate BP & HR: stable & adequate Hydration State: stable & adequate Neuraxial Anesthesia: was administered and sensory block is resolving Anesthetic Complications: no major complications apparent
[2019-07-02] MEDS: KETOROLAC 30 MG/ML VIAL IV PRN (13:59)
[2019-07-02] MEDS: SIMETHICONE 80 MG CHEW PO SCH ×3 (13:59→21:01)
[2019-07-02] MEDS: DOCUSATE SODIUM 100 MG CAP PO SCH (21:01)
[2019-07-03] MEDS: KETOROLAC 30 MG/ML VIAL IV PRN (01:02)
[2019-07-03] MEDS ORDERED: PROMETHAZINE HCL 25 MG in SODIUM CHLORIDE 0.9% 50 ML IV PRN (03:17)
[2019-07-03] MEDS ORDERED: DiphenhydrAMINE HCL 50 MG/ML VIAL IV PRN (03:17)
[2019-07-03] MEDS ORDERED: OXYCODONE/ACETAMINOPHEN 5mg/325mg TAB PO PRN (03:17)
[2019-07-03] MEDS ORDERED: ONDANSETRON INJ 2 MG/ML 2 ML VIAL IV PRN (03:17)
[2019-07-03] MEDS ORDERED: KETOROLAC 30 MG/ML VIAL IV PRN (03:17)
[2019-07-03] MEDS ORDERED: ZOLPIDEM TARTRATE 5 MG TAB PO PRN (03:17)
[2019-07-03] MEDS ORDERED: MEPERIDINE HCL 50 MG/ML CARP IV PRN (03:17)
[2019-07-03 06:20] LABS: Basophils # (auto) 0.02 K/uL (0-0.2); Basophils % (auto) 0.2 %; Eosinophils # (auto) 0.15 K/uL (0-0.5); Eosinophils % (auto) 1.2 %; Hematocrit (blood only) 31.2 % (37-47); Immature Granulocytes # (auto) 0.08 K/uL (0.00-0.02); Immature Granulocytes % (auto) 0.6 %; Lymphocytes # (auto) 1.59 K/uL (1.2-3.4); Lymphocytes % (auto) 12.5 %; Mean Corpuscular Hemoglobin 29.9 pg (25-34); Mean Corpuscular Hgb Conc 35.3 g/dL (32-36); Mean Corpuscular Volume 84.8 fL (80-100); Mean Platelet Volume 11.4 fL (7.4-10.4); Monocytes # (auto) 0.87 K/uL (0.11-0.59); Monocytes % (auto) 6.8 %; Neutrophils # (auto) 10.03 K/uL (1.4-6.5); Neutrophils % (auto) 78.7 %; Platelet Count 122 K/uL (130-400); RDW Coefficient of Variation 13.9 % (11.5-14.5); RDW Standard Deviation 42.6 fL (36.4-46.3); Red Blood Count 3.68 M/uL (4.2-5.4); White Blood Count 12.74 K/uL (4.8-10.8)
[2019-07-03] MEDS: IBUPROFEN 600 MG TAB PO PRN ×4 (08:57→22:09)
[2019-07-03] MEDS: PRENATAL VITAMIN 1 TAB PO SCH (08:57)
[2019-07-03] MEDS: SIMETHICONE 80 MG CHEW PO SCH ×3 (08:57→17:34)
[2019-07-03] MEDS: FERROUS SULFATE 325 MG TAB PO SCH (08:57)
[2019-07-03] MEDS: DOCUSATE SODIUM 100 MG CAP PO SCH (08:57)
--- NOTE | 2019-07-03 09:13 | Surgery Progress Note ---
Date of Service July 03, 2019 Subjective doing well not passing gas yet pain controlled tolerating diet Physical Exam Constitutional: WD/WN, vitals as above comfortable abdomen soft and non- tender incision clean dry and intact neg edema neg Jorge's Will advance diet/care Results & Data Vital Signs (Past 12 Hours) Vital Signs Temp Pulse Pulse Resp BP BP Pulse Ox 07/03/19 08:45 37.2 C 74 16 107/74 97 07/03/19 03:50 37.1 C 67 18 111/72 98 07/03/19 02:30 18 100 07/03/19 01:00 18 99 07/03/19 00:15 18 98 07/02/19 23:10 37.1 C 86 18 115/78 99 07/02/19 22:15 18 99 Laboratory Results Laboratory Results - last 72 hr 06/30/19 06/30/19 06/30/19 14:16 14:16 14:16 WBC 10.85 H RBC 4.31 Hgb 12.5 Hct 37.2 MCV 86.3 MCH 29.0 MCHC 33.6 RDW Std Deviation 44.0 RDW Coeff of Gerard 13.9 Plt Count 149 MPV 12.8 H Immature Gran % (Auto) 0.9 Neut % (Auto) 67.2 Lymph % (Auto) 21.9 Tift % (Auto) 7.2 Eos % (Auto) 2.5 Baso % (Auto) 0.3 Immature Gran # (Auto) 0.10 H Neut # (Auto) 7.29 H Lymph # (Auto) 2.38 Tift # (Auto) 0.78 H Eos # (Auto) 0.27 Baso # (Auto) 0.03 PT 9.3 INR 0.9 APTT 26.8 PTT Ratio 1.0 Sodium 139 Potassium 3.6 Chloride 107 Carbon Dioxide 23 Anion Gap 9.0 BUN 9 Creatinine 0.64 Est Cr Clr Drug Dosing 132.2 Est GFR ( Amer) 136.8 Est GFR (Non-Af Amer) 118.1 BUN/Creatinine Ratio 13.7 Glucose 75 Calcium 8.8 Blood Type Antibody Screen Screen 06/30/19 07/02/19 07/02/19 14:16 05:42 05:42 WBC 10.14 RBC 4.26 Hgb 12.3 Hct 36.4 L MCV 85.4 MCH 28.9 MCHC 33.8 RDW Std Deviation 43.1 RDW Coeff of Gerard 14.0 Plt Count 152 MPV 12.4 H Immature Gran % (Auto) 1.2 Neut % (Auto) 60.1 Lymph % (Auto) 27.3 Tift % (Auto) 8.8 Eos % (Auto) 2.3 Baso % (Auto) 0.3 Immature Gran # (Auto) 0.12 H Neut # (Auto) 6.10 Lymph # (Auto) 2.77 Tift # (Auto) 0.89 H Eos # (Auto) 0.23 Baso # (Auto) 0.03 PT 9.3 INR 0.9 APTT 26.1 PTT Ratio 1.0 Sodium Potassium Chloride Carbon Dioxide Anion Gap BUN Creatinine Est Cr Clr Drug Dosing Est GFR ( Amer) Est GFR (Non-Af Amer) BUN/Creatinine Ratio Glucose Calcium Blood Type O Negative Antibody Screen NEGATIVE Screen 07/02/19 07/03/19 07/03/19 05:42 05:56 05:56 WBC 12.74 H RBC 3.68 L Hgb 11.0 L Hct 31.2 L MCV 84.8 MCH 29.9 MCHC 35.3 RDW Std Deviation 42.6 RDW Coeff of Gerard 13.9 Plt Count 122 L MPV 11.4 H Immature Gran % (Auto) 0.6 Neut % (Auto) 78.7 Lymph % (Auto) 12.5 Tift % (Auto) 6.8 Eos % (Auto) 1.2 Baso % (Auto) 0.2 Immature Gran # (Auto) 0.08 H Neut # (Auto) 10.03 H Lymph # (Auto) 1.59 Tift # (Auto) 0.87 H Eos # (Auto) 0.15 Baso # (Auto) 0.02 PT INR APTT PTT Ratio Sodium 138 Potassium 3.6 Chloride 109 H Carbon Dioxide 22 Anion Gap 7.0 BUN 9 Creatinine 0.64 Est Cr Clr Drug Dosing 130.4 Est GFR ( Amer) 136.8 Est GFR (Non-Af Amer) 118.1 BUN/Creatinine Ratio 13.3 Glucose 70 Calcium 9.1 Blood Type O Negative Antibody Screen NEGATIVE Screen Negative
--- NOTE | 2019-07-03 09:25 | Anesthesiology Progress Note ---
Date of Service July 03, 2019 patient is stable;sitting up and ambulating;no c/o H/A; no c/o LE weakness or paresthesias. vital signs are stable. Physical Exam Vital Signs: Last Vital Signs Temp 37.2 C 07/03/19 08:45 Pulse 74 07/03/19 08:45 Resp 16 07/03/19 08:45 BP 107/74 07/03/19 08:45 Pulse Ox 97 07/03/19 08:45 Results & Data Medications Administered Docusate Sodium (Colace) 100 mg PO DAILY@08,21 [facility] Stop: 08/01/19 20:59 Last Admin: 07/03/19 08:57 Dose: 100 mg Documented by: [id number] Admin: 07/02/19 21:01 Dose: 100 mg Documented by: [id number] Ferrous Sulfate (Feosol) 325 mg PO DAILY@08 [facility] Stop: 08/02/19 07:59 Last Admin: 07/03/19 08:57 Dose: 325 mg Documented by: [id number] Promethazine HCl 25 mg/ Sodium (Chloride) 51 mls @ 204 mls/hr IV Q4H PRN PRN Reason: Nausea And Vomiting Stop: 08/02/19 03:16 Last Infusion: 07/02/19 18:34 Dose: 0 mls/hr Documented by: [id number] Admin: 07/02/19 17:54 Dose: 204 mls/hr Documented by: [id number] Oxytocin 20 units/ Lactated (Ringer's) 1,002 mls @ 125 mls/hr IV .Q8H1M [facility] Stop: 08/01/19 09:59 Last Infusion: 07/03/19 02:40 Dose: 0 mls/hr Documented by: [id number] Cosigned by: [id number] Admin: 07/02/19 18:38 Dose: 125 mls/hr Documented by: [id number] Cosigned by: [id number] Infusion: 07/02/19 17:57 Dose: 125 mls/hr Documented by: [id number] Cosigned by: [id number] Admin: 07/02/19 09:56 Dose: 125 mls/hr Documented by: [id number] Cosigned by: [id number] Ibuprofen (Motrin) 600 mg PO Q4H PRN PRN Reason: Pain Stop: 08/01/19 09:15 Last Admin: 07/03/19 08:57 Dose: 600 mg Documented by: [id number] Magnesium Hydroxide (Milk Of Magnesia) 30 ml PO HS PRN PRN Reason: Constipation Stop: 08/01/19 09:15 Last Admin: 07/03/19 08:57 Dose: 30 ml Documented by: [id number] Prenat Multivit/Business Center Representative/Iron/Folic Ac ( Vitamin) 1 tab PO DAILY@08 [facility] Stop: 08/02/19 07:59 Last Admin: 07/03/19 08:57 Dose: 1 tab Documented by: [id number] Simethicone (Mylicon) 80 mg PO DAILY@08,13,17,21 [facility] Stop: 08/01/19 12:59 Last Admin: 07/03/19 08:57 Dose: 80 mg Documented by: [id number] Admin: 07/02/19 21:01 Dose: 80 mg Documented by: [id number] Admin: 07/02/19 17:59 Dose: Not Given Documented by: [id number] Admin: 07/02/19 13:59 Dose: 80 mg Documented by: [id number]
[2019-07-03] MEDS ORDERED: bisacodyL 5 MG TABEC PO SCH (20:00)
[2019-07-03] MEDS ORDERED: bisacodyL 10 MG SUPP PR STA (21:59)
[2019-07-04] MEDS: IBUPROFEN 600 MG TAB PO PRN ×3 (05:25→13:30)
[2019-07-04 07:33] LABS: Hematocrit (blood only) 32.6 % (37-47); Hemoglobin 10.8 g/dL (12.0-16.0)
[2019-07-04] MEDS: SIMETHICONE 80 MG CHEW PO SCH ×2 (09:15→13:30)
[2019-07-04] MEDS: PRENATAL VITAMIN 1 TAB PO SCH (09:15)
[2019-07-04] MEDS: DOCUSATE SODIUM 100 MG CAP PO SCH (09:15)
[2019-07-04] MEDS: FERROUS SULFATE 325 MG TAB PO SCH (09:15)
[2019-07-04] MEDS ORDERED: bisacodyL 10 MG SUPP PR PRN (09:17)
--- NOTE | 2019-07-04 11:27 | Surgery Progress Note ---
Date of Service July 04, 2019 Subjective doing well POD#3 Physical Exam Constitutional: WD/WN, vitals as above comfortable incision clean dry intact abdomen soft non-tender passing gas minimal lower extremity edema neg Jorge's for d/c Results & Data Vital Signs (Past 12 Hours) Vital Signs Temp Pulse Resp BP Pulse Ox 07/04/19 08:45 36.9 C 71 20 133/87 99 07/03/19 23:35 37 C 69 18 117/72 Laboratory Results Laboratory Results - last 48 hr 07/03/19 07/03/19 07/04/19 05:56 05:56 06:52 WBC 12.74 H RBC 3.68 L Hgb 11.0 L 10.8 L Hct 31.2 L 32.6 L MCV 84.8 MCH 29.9 MCHC 35.3 RDW Std Deviation 42.6 RDW Coeff of Gerard 13.9 Plt Count 122 L MPV 11.4 H Immature Gran % (Auto) 0.6 Neut % (Auto) 78.7 Lymph % (Auto) 12.5 [place] % (Auto) 6.8 Eos % (Auto) 1.2 Baso % (Auto) 0.2 Immature Gran # (Auto) 0.08 H Neut # (Auto) 10.03 H Lymph # (Auto) 1.59 [place] # (Auto) 0.87 H Eos # (Auto) 0.15 Baso # (Auto) 0.02 Blood Type O Negative Antibody Screen NEGATIVE Screen Negative
--- NOTE | 2019-07-10 22:21 | Discharge Summary ---
Mrs. Van is 6, para 2. She was born with spina bifida occulta, has had several back surgeries and foot surgery. Her prior delivery resulted in a section for breech presentation and followed in our office for care and delivery. Recently been diagnosed with a breech presentation. It should be noted that she has an abnormally shaped uterus. She has a heart-shaped uterus with a septum. The septum has been cut, but the general shape of the uterus is still a heart-shaped uterus. Diagnosed with the 's head in the right upper quadrant and sometimes it would switch to left upper quadrant. She was brought in at 39 weeks gestation. A bedside ultrasound confirmed the presence of a breech presentation. She was taken to the OR, had some difficulty getting spinal in, though spinal was gotten in and she underwent repeat low segment section through a previous scar. She had more or less an oblique lie with the head in the right upper quadrant and the breech in the left lower quadrant and was able to enter the lower uterine segment and basically grasp the baby's 2 feet and do a breech extraction through the incision. breathed and cried spontaneously. There was a true knot noted in the cord. Cord blood was taken. The placenta was removed manually. Uterus, tubes, and ovaries were brought out through the incision. Ten units of Pitocin was injected into the uterus. Postoperatively, the patient did well. She remained afebrile. She did have preoperative antibiotics. Her hemoglobin went from 12.3 to 10.8. At the time of discharge, vaginal bleeding was minimal. She was ambulating well, eating well, and pain was controlled with a combination of Percocet and Motrin and she was told to return to the office for removal of tri.
== END 2019-07-04 14:15 | disposition home or self-care (01) | DRG 788 ==
LOC: 4S1 05:29 → EDSTATUS 07:30 → 4S2 11:51